=== PATIENT | male | born 1990 | race African-American/Black ===

== ENCOUNTER 2018-03-13 16:05 | Emergency (ER) | payer BC, SELFPAY ==
[2018-03-13] MEDS ORDERED: Ketorolac Tromethamine 60 MG/2 ML VIAL ONE (17:48)
--- NOTE | 2018-03-13 18:19 | RAD ---
THREE VIEWS LEFT SHOULDER: 03/13/18 INDICATION: Left shoulder pain. COMPARISON: None. FINDINGS: No acute fracture or subluxation is evident. The visualized left lung is clear. IMPRESSION: No acute osseous abnormality. POS: BRITNI
== END 2018-03-13 18:55 | disposition home or self-care (01) ==
LOC: ERS 16:05
DX: M25.512 Pain in left shoulder (principal); J45.909 Unspecified asthma, uncomplicated; Z87.891 Personal history of nicotine dependence
CPT/HCPCS: 96372; J1885

== ENCOUNTER 2019-05-26 11:33 | Emergency (ER) | payer SELFPAY ==
[2019-05-26] MEDS ORDERED: Fentanyl 100 MCG/2 ML VIAL ONE (11:59)
--- NOTE | 2019-05-26 12:09 | CT ---
CHEST CT WITH CONTRAST ABDOMEN CT WITH CONTRAST PELVIC CT WITH CONTRAST LIMITED CT OF THE THORACIC AND LUMBAR SPINE: HISTORY: Trauma. Patient pinned between 2 pieces of equipment. Patient heard his chest pop and is currently ex periencing chest pain. Correlation: None. COMPARISON: None. FINDINGS: Chest CT: Mediastinum: No mass, lymphadenopathy or hematoma. Thyroid: Incompletely evaluated 1.7 x 1.1 cm hypodensity in the right thyroid lobe. Aorta: The thoracic aorta and abdominal aorta have a normal caliber. No periaortic fat stranding. Heart: Upper normal heart size. No significant pericardial fluid. Trachea and central bronchi: Patent Pleural spaces: No pleural effusion Right lung: No mass or consolidation. Left lung:No masses or consolidation. Minimal dependent atelectatic changes and minimal patchy ground glass opacities in the left lower lobe. Pneumothorax: None Abdomen CT: Gallbladder: Unremarkable Portal vein: Patent Liver: Appropriate enhancement. Spleen: Appropriate enhancement Pancreas: Appropriate enhancement Adrenal glands: Appropriate enhancement Lymphadenopathy: No gastrohepatic, retrocrural or periportal lymphadenopathy Kidneys: Symmetric enhancement. No obstructive uropathy. Exophytic hypodensity emanating from the low er pole the right kidney is too small to characterize but is statistically favored to be a cyst. Mesentery: No mass, lymphadenopathy, free air or free fluid Alimentary canal: Limited evaluation by the lack of oral contrast administration. No evidence of chel l obstruction. Ileocecal junction is unremarkable. Normal caliber appendix. Fatty infiltration of the colonic mucosa is nonspecific. Pelvis CT: No pelvic mass, lymphadenopathy, free air or free fluid. Unremarkable urinary bladder. Incidental umbilical hernia containing mesenteric fat. Osseous structures: Bony thorax and bony pelvis are intact. Arm is intact. Sacral alar are preserved. Limited CT of the thoracic and lumbar spine: Vertebral body heights are maintained. No malalignment. No fracture. IMPRESSION: No posttraumatic sequelae in the chest, abdomen or pelvis. Incidental right thyroid lobe finding. Non emergent thyroid ultrasound. Results study discussed were with Dr. Siu 05/26/2019 at 12:07 PM. Code CR Transcribed Date/Time: 05/26/2019 12:17 PM
[2019-05-26] MEDS ORDERED: Ketorolac Tromethamine 30 MG/ML VIAL ONE (12:35)
== END 2019-05-26 12:57 | disposition home or self-care (01) ==
LOC: ERS 11:33
DX: S20.212A Contusion of left front wall of thorax, initial encounter (principal); E04.1 Nontoxic single thyroid nodule; J45.909 Unspecified asthma, uncomplicated; Z87.891 Personal history of nicotine dependence; W24.0XXA Contact with lifting devices, not elsewhere classified, initial encounter
CPT/HCPCS: 71260; 74177; 96374; 96375; J1885; J3010